=== PATIENT | male | born 1995 | race Caucasian/White ===

== ENCOUNTER 2021-05-07 19:41 | Emergency (ER) | payer OTHER, SELFPAY ==
[2021-05-07 20:07] LABS: Absolute Lymphocytes (CBC) 1.8 K/uL (0.7-4.9); Basophils % 0.7 % (0-1.3); Hematocrit 45.8 % (39.6-49.0); Lymphocytes % 22.1 % (15.3-44.8); MPV 7.4 fL (7.6-11.3); RBC Red Blood Cell Count 5.15 M/uL (4.33-5.43)
[2021-05-07 20:13] LABS: Protime INR 1.12
[2021-05-07 20:29] LABS: ALT/SGPT 20 U/L (12-78); AST/SGOT 22 U/L (15-37); Albumin 4.6 g/dL (3.4-5.0); Alkaline Phosphatase 89 U/L (45-117); BUN Blood Urea Nitrogen 8 mg/dL (7-18); Bicarbonate 28 mmol/L (21-32); Bilirubin Direct < 0.1 mg/dL (0-0.2); Bilirubin Total 0.5 mg/dL (0.2-1.0); Glucose Level 89 mg/dL (74-106); Potassium 3.4 mmol/L (3.5-5.1); Protein, Total 8.2 g/dL (6.4-8.2); Sodium Level 143 mmol/L (136-145)
[2021-05-07 20:31] LABS: Barbiturates NEGATIVE (NEGATIVE); Benzodiazepines NEGATIVE (NEGATIVE); Cocaine NEGATIVE (NEGATIVE); METHAMPHETAM NEGATIVE (NEGATIVE); Methadone NEGATIVE (NEGATIVE); Opiates NEGATIVE (NEGATIVE); Phencyclidine NEGATIVE (NEGATIVE); THC Cannibis NEGATIVE (NEGATIVE)
--- NOTE | 2021-05-07 23:39 | ER ---
Nurse's Notes [facility] Name: Je Nguyễn Age: 25 yrs Sex: Male : 1995 Arrival Date: 05/07/2021 Time: 19:44 Bed 17 Private MD: Diagnosis: Alcohol use, unspecified with intoxication;Depression Presentation: 05/07 20:08 Chief complaint: PD [place] and best friend. lh3 The police guard states that patient says, "On one side of my head it is telling me to end it all and on the other side it is telling me not to." PD did not want to make the decision on scene to say that patient is ok to go home with friend, so they brought him in to be evaluated by the Dr. Coronavirus screen: Vaccine status: Patient reports being unvaccinated. states he had COVID in march 2021. Ebola Screen: No symptoms or risks identified at this time. Initial Sepsis Screen: Does the patient meet any 2 criteria? No. Patient's initial sepsis screen is negative. Does the patient have a suspected source of infection? No. Patient's initial sepsis screen is negative. Risk Assessment: Do you want to hurt yourself or someone else? Other: pt states that he was having suicidal ideation the other day, with an attempt to walk out into the water and not come back. Denies having those thoughts today. Denies HI. Onset of symptoms was May 07, 2021. 20:08 Method Of Arrival: Law Enforcement: Chayito RICK lh3 20:08 Acuity: ANGELA 2 lh3 Triage Assessment: 20:21 General: Appears in no apparent distress. General: Behavior is calm, cooperative, lh3 appropriate for age. Pain: Denies pain. Pain: Denies pain. Historical: - Allergies: 20:21 No Known Allergies; lh3 - Home Meds: 20:21 None [Active]; lh3 - PMHx: 20:21 None; lh3 - PSHx: 20:21 None; lh3 - Immunization history:: Adult Immunizations not up to date, Client reports having NOT received the Covid vaccine. - Social history:: Smoking status: Reported history of juuling and/or vaping. Patient uses alcohol, weekly. Screenin:23 Abuse screen: Denies threats or abuse. Nutritional screening: No deficits noted. 3 Tuberculosis screening: No symptoms or risk factors identified. Fall Risk IV access (20 points). Assessment: 20:23 General: Appears in no apparent distress. General: Behavior is calm, cooperative, 3 appropriate for age. Vital Signs: 20:08 BP 125 / 85; Pulse 87; Resp 18; Pulse Ox 100% ; Weight 59.42 kg; Height 5 ft. 5 in. 3 (165.10 cm); 20:21 BP 130 / 87; Pulse 93; Resp 18; Pulse Ox 99% on R/A; lh3 21:55 BP 128 / 80; Pulse 87; Resp 18; Temp 98.2; Pulse Ox 100% on R/A; lh3 20:08 Body Mass Index 21.80 (59.42 kg, 165.10 cm) 3 ED Course: 19:44 Patient arrived in ED. cf2 19:48 Orville Jackson MD is Attending Physician. [facility] 20:03 Inserted saline lock: 18 gauge in right antecubital area, using aseptic technique. sj1 Blood collected. 20:08 Latosha Jay, RN is Primary Nurse. 3 20:21 Triage completed. 3 20:21 Arm band placed on right wrist. 3 20:23 No provider procedures requiring assistance completed. Inserted saline lock:. 3 20:23 Patient has correct armband on for positive identification. Bed in low position. Call [facility] light in reach. Side rails up X 1. 23:37 Giorgi Martínez MD is Referral Physician. [facility] 23:53 IV discontinued, bleeding controlled, No redness/swelling at site. Pressure dressing 3 applied. Administered Medications: No medications were administered Outcome: 23:38 Discharge ordered by . [facility] 23:53 Discharged to home with friend. 3 23:53 Condition: good 23:53 Discharge instructions given to patient, friend, Instructed on discharge instructions, follow up and referral plans. Demonstrated understanding of instructions, follow-up care. 23:57 Patient left the ED. 3 Signatures: Armando Vital cf2 Orville Jackson MD MD 7 Latosha Jay RN RN 3 Eri Yeung RN RN sj1
--- NOTE | 2021-05-07 23:39 | EDPHYS ---
Physician Documentation [facility] Name: Je Nguyễn Age: 25 yrs Sex: Male : 1995 Arrival Date: 05/07/2021 Time: 19:44 Bed 17 Private MD: ED Physician Orville Jackson HPI: 05/07 19:40 This 25 yrs old Male presents to ER via Law Enforcement with complaints of mh7 Depression. 19:40 The patient presents to the emergency department with depression, over unknown mh7 circumstances. Onset: The symptoms/episode began/occurred 1 week(s) ago. Past psychiatric history: Prior diagnosis: no previous psychiatric diagnosis known, Psychiatric medications include: none, Primary psychiatric physician: the patient does not have a primary psychiatric physician, the patient has not had a prior suicide gesture, the patient does not have a previous inpatient psychiatric history, the patient's last psychiatric treatment was none. Associated signs and symptoms: Pertinent negatives: abdominal pain, anxiety, chest pain, chills, delusions, fever, hallucinations, headache, homicidal ideation, nausea, night sweats, palpitations, paranoia, shortness of breath, substance abuse, suicide ideation, tremor, vomiting. Severity of symptoms: At their worst the symptoms were mild 3 day(s) ago, in the emergency department the symptoms have improved markedly. Historical: - Allergies: 20:21 No Known Allergies; lh3 - Home Meds: 20:21 None [Active]; lh3 - PMHx: 20:21 None; lh3 - PSHx: 20:21 None; lh3 - Immunization history:: Adult Immunizations not up to date, Client reports having NOT received the Covid vaccine. - Social history:: Smoking status: Reported history of juuling and/or vaping. Patient uses alcohol, weekly. ROS: 19:40 Constitutional: Negative for fever, chills, and weight loss, Eyes: Negative for injury, mh7 pain, redness, and discharge, ENT: Negative for injury, pain, and discharge, Neck: Negative for injury, pain, and swelling, Cardiovascular: Negative for chest pain, palpitations, and edema, Respiratory: Negative for shortness of breath, cough, wheezing, and pleuritic chest pain, Abdomen/GI: Negative for abdominal pain, nausea, vomiting, diarrhea, and constipation, Back: Negative for injury and pain, : Negative for injury, bleeding, discharge, and swelling, MS/Extremity: Negative for injury and deformity, Skin: Negative for injury, rash, and discoloration, Neuro: Negative for headache, weakness, numbness, tingling, and seizure, Allergy/Immunology: Negative for hives, rash, and allergies, Endocrine: Negative for neck swelling, polydipsia, polyuria, polyphagia, and marked weight changes, Hematologic/Lymphatic: Negative for swollen nodes, abnormal bleeding, and unusual bruising. Exam: 19:40 Constitutional: This is a well developed, well nourished patient who is awake, alert, mh7 and in no acute distress. Head/Face: Normocephalic, atraumatic. Eyes: Pupils equal round and reactive to light, extra-ocular motions intact. Lids and lashes normal. Conjunctiva and sclera are non-icteric and not injected. Cornea within normal limits. Periorbital areas with no swelling, redness, or edema. Chest/axilla: Normal chest wall appearance and motion. Nontender with no deformity. No lesions are appreciated. Cardiovascular: Regular rate and rhythm with a normal S1 and S2. No gallops, murmurs, or rubs. Normal PMI, no JVD. No pulse deficits. Respiratory: Lungs have equal breath sounds bilaterally, clear to auscultation and percussion. No rales, rhonchi or wheezes noted. No increased work of breathing, no retractions or nasal flaring. Abdomen/GI: Soft, non-tender, with normal bowel sounds. No distension or tympany. No guarding or rebound. No evidence of tenderness throughout. Back: No spinal tenderness. No costovertebral tenderness. Full range of motion. 19:40 Neuro: Awake and alert, GCS 15, oriented to person, place, time, and situation. Cranial nerves II-XII grossly intact. Motor strength 5/5 in all extremities. Sensory grossly intact. Cerebellar exam normal. Normal gait. 19:40 Musculoskeletal/extremity: Extremities: noted in the Left forearm: abrasion, Healing, ROM: intact in all extremities, Circulation is intact in all extremities. Sensation intact. Compartment Syndrome exam of affected extremity: is normal. no pain, no numbness, no tingling, no sensation deficit, no palor, no weak pulses, Joints: All joints appear normal with full range of motion. Weight bearing: able to fully bear weight, without difficulty, Tendon exam: specific tendon testing normal through active and passive range of motion 19:40 Skin: injury, abrasion(s), small abrasion noted, of the Left forearm, Healing. 19:40 Psych: Behavior/mood is cooperative, Affect is calm, Oriented to person, place, time, Patient has no thoughts/intents to harm self or others. Judgement / Insight is normal. Memory is normal. Delusions/hallucinations are not present. Vital Signs: 20:08 BP 125 / 85; Pulse 87; Resp 18; Pulse Ox 100% ; Weight 59.42 kg; Height 5 ft. 5 in. lh3 (165.10 cm); 20:21 BP 130 / 87; Pulse 93; Resp 18; Pulse Ox 99% on R/A; lh3 21:55 BP 128 / 80; Pulse 87; Resp 18; Temp 98.2; Pulse Ox 100% on R/A; lh3 20:08 Body Mass Index 21.80 (59.42 kg, 165.10 cm) 3 MDM: 23:34 Differential diagnosis: drug withdrawal. depression, Alcohol intoxication, substance mh7 abuse, depression. Data reviewed: vital signs, nurses notes, lab test result(s), CBC, electrolytes, urine drug screen, EKG. Data interpreted: Pulse oximetry: on room air is 100 %. Interpretation: normal. Counseling: I had a detailed discussion with the patient and/or guardian regarding: the historical points, exam findings, and any diagnostic results supporting the discharge/admit diagnosis, lab results, the need for outpatient follow up, a psychiatrist. Response to treatment: the patient's symptoms have resolved after treatment, the patient's blood pressure is in an acceptable range, mental status has returned to baseline, the patient no longer shows bradycardia, the patient is not short of breath, the patient is not tachycardic, the patient's pain is gone, the patient's temperature has normalized. ED course: Well-appearing, no acute distress, vitals are stable, no focal neurological deficits. Appropriate with answering questions. No suicidal or homicidal ideation. No auditory visual hallucinations. He states that he has a therapist that he is actively seeing and has an upcoming appointment in the next few days. Family is at bedside and confirms information that he is relaying.. 23:38 Patient medically screened. [facility] 05/07 19:48 Order name: Acetaminophen; Complete Time: 21:00 [facility] 05/07 19:48 Order name: Basic Metabolic Panel; Complete Time: 21:00 [facility] 05/07 19:48 Order name: CBC with Diff; Complete Time: 20:31 [facility] 05/07 19:48 Order name: ETOH Level; Complete Time: 21:00 [facility] 05/07 19:48 Order name: Hepatic Function; Complete Time: 21:00 [facility] 05/07 19:48 Order name: PT-INR; Complete Time: 20:31 [facility] 05/07 19:48 Order name: Ptt, Activated; Complete Time: 20: [facility] 05/07 19:48 Order name: Salicylate; Complete Time: 21:00 [facility] 05/07 19:48 Order name: Urine Drug Screen; Complete Time: 21:00 [facility] 05/07 19:48 Order name: EKG - Nurse/Tech; Complete Time: 20:25 [facility] 05/07 19:48 Order name: IV Saline Lock; Complete Time: 20:02 [facility] 05/07 19:48 Order name: Labs collected and sent; Complete Time: 20:02 [facility] 05/07 19:48 Order name: Suicide Screening ([place]); Complete Time: 20:25 [facility] 05/07 19:48 Order name: Urine Dipstick-Ancillary (obtain specimen); Complete Time: 20:15 [facility] Administered Medications: No medications were administered Disposition Summary: 05/07/21 23:38 Discharge Ordered Location: Home [facility] Problem: an acute exacerbation [facility] Symptoms: have improved [facility] Condition: Stable [facility] Diagnosis - Alcohol use, unspecified with intoxication 7 - Depression [facility] Followup: [facility] - With: Private Physician - When: 1 - 2 days - Reason: Worsening of condition, Recheck today's complaints, Continuance of care, Re-evaluation by your physician Followup: [facility] - With: Giorgi Martínez MD - When: 1 - 2 days - Reason: Worsening of condition, Recheck today's complaints Discharge Instructions: - Discharge Summary Sheet [facility] - Alcohol Intoxication, [id number] [facility] - Managing Depression, Adult [facility] Forms: - Medication Reconciliation Form [facility] - Thank You Letter 7 - Antibiotic Education mh7 - Prescription Opioid Use [facility] Signatures: Dispatcher [employer] Orville Arroyo MD MD 7 Latosha Jay RN RN 3
[2021-05-08 00:26] VITALS: BP 128/80; TEMP 98.2; O2SAT 100
== END 2021-05-07 23:57 | disposition home or self-care (01) ==
LOC: ER 19:41
DX: F32.9 Major depressive disorder, single episode, unspecified (principal)
CPT/HCPCS: 36415; 80048; 80076; 80307; 80320; 80329; 85025; 85610; 85730; 99283